=== PATIENT | male | born 1975 | race American Indian/Alaskan Native ===

== ENCOUNTER 2021-05-31 07:30 | Day surgery (SDC) | payer BC ==
[2021-05-31] MEDS ORDERED: ASPIRIN EC 325 MG TAB PO NR (08:00)
[2021-05-31] MEDS ORDERED: SODIUM CHLORIDE 0.9% 500 ML 500 ML IV SCH (08:00)
[2021-05-31 09:05] LABS: Basophils # (Auto) 0.1 K/mm3 (0.0-0.1); Basophils % (Auto) 1.1 % (0.0-1.8); Eosinophils # (Auto) 0.2 K/mm3 (0.0-0.4); Eosinophils % (Auto) 4.2 % (0.0-4.3); Hematocrit 39.1 % (35.5-45.6); Lymphocytes # (Auto) 1.8 K/mm3 (1.2-5.4); Lymphocytes % (Auto) 29.9 % (13.4-35.0); Mean Corpuscular HGB Conc 33 % (32-34); Mean Corpuscular Volume 87 fl (84-94); Monocytes # (Auto) 0.5 K/mm3 (0.0-0.8); Platelet Count 173 K/mm3 (140-440); Red Blood Count 4.49 M/mm3 (3.65-5.03); Red Cell Distribution Width 16.4 % (13.2-15.2)
[2021-05-31 09:14] LABS: INR 0.88 (0.87-1.13)
[2021-05-31 09:40] LABS: BUN/Creatinine Ratio 13; Blood Urea Nitrogen 14 mg/dL (9-20); Calcium 8.8 mg/dL (8.4-10.2); Hemolysis Index 5
[2021-05-31] MEDS ORDERED: HEPARIN/NS 5000 UNIT/500ML 1,000 ML IR ONE (10:07)
[2021-05-31] MEDS ORDERED: HEPARIN 10,000 UNITS/10 ML VIAL ONE (10:08)
[2021-05-31] MEDS: LIDOCAINE (2%) 20 MG/1 ML VIAL 20 ML MDV INFILTRATI ONE ×2 (10:48→10:52)
[2021-05-31] MEDS: MIDAZOLAM 2 MG/2 ML INJ ONE ×3 (10:51→11:01)
[2021-05-31] MEDS: fentaNYL 100 MCG/2 ML INJ ONE ×3 (10:51→11:01)
[2021-05-31] MEDS ORDERED: LIDOCAINE (2%) 20 MG/1 ML VIAL 20 ML MDV INFILTRATI ONE (10:58)
[2021-05-31] MEDS ORDERED: hydrALAZINE 20 MG/1 ML INJ ONE (11:26)
[2021-05-31] MEDS ORDERED: hydrALAZINE 20 MG/1 ML INJ IV ONE (12:21)
--- NOTE | 2021-05-31 13:09 | Cardiac Catherization Report ---
DATE OF SERVICE: 05/31/2021 INDICATIONS: The patient is a 45-year-old gentleman with history of essential hypertension and history of COVID infection in 04/2021, having shortness of breath and the patient does have a history of aortocoronary bypass surgery performed on 08/25/[address] Bijan Abraham with a LUNDY to the LAD, SVG to diagonal and SVG to PDA and SVG to mid obtuse marginal branch for angina. Presently underwent a PET nuclear imaging, which showed evidence of reduced myocardial blood flow in the territory of the RCA along with mild ischemia in the same area. Because of this, the patient was scheduled for cardiac catheterization for definitive diagnosis and treatment with occasional episodes of chest pain. The patient had an echocardiogram performed on 05/15/2021, which was found to show normal ejection fraction of 50-55% and septal wall appeared to be moderately hypokinetic. Borderline LVH noted. The patient is aware of the procedure, potential complications, and alternatives of therapy available. DESCRIPTION OF PROCEDURE: The patient was brought to the catheterization laboratory and his blood pressure was found to be significantly elevated 168/110 mmHg. Subsequently, the patient was evaluated for moderate sedation and was felt to be a candidate for moderate sedation and received IV Versed and fentanyl and continuously monitored with pulse oximetry and EKG monitoring and hemodynamic monitoring. Right groin area was prepared with chlorhexidine solution, sterile drapes were applied, local anesthesia was given in the right groin area. Right femoral artery puncture was made using 5-Burkinan micropuncture needle under fluoroscopy. A 6-Burkinan slender sheath was introduced. A 6-Burkinan multipurpose catheter was used to obtain the angiograms of the saphenous vein graft to the diagonal, saphenous vein graft to the mid obtuse marginal, saphenous vein graft to the RCA, and also left coronary angiograms were obtained using the same catheter. Subsequently, this catheter was then exchanged to mammary catheter and angiograms of the right coronary artery and angiograms of the left internal mammary artery graft were obtained with mammary catheter. Subsequently, this catheter was removed over the guidewire. Angiograms of the right femoral artery were obtained. The patient's right femoral artery puncture was in the appropriate position below the inferior epigastric artery. Manual pressure will be applied, but will control the blood pressure prior to pulling out the sheath. The patient tolerated the procedure well. No untoward complications noted. The patient's moderate sedation started at 10:51 a.m. and ended at 11:24 a.m. At the end of the procedure, the patient is communicating normally and breathing normally with no focal deficits. The patient was transferred to the outpatient area in stable condition. We will monitor the blood pressure, will remove the sheath and manual pressure will be applied. Following findings were noted. HEMODYNAMICS: Aortic pressure 168/110. Left ventricular pressure 168/34. No gradient across the aortic valve. Estimated ejection fraction 60%. Left ventriculogram done in J[facility]AV[facility] projection showed normal sized left ventricle with normal contractility. Estimated ejection fraction 60%. Elevated end diastolic pressure of 34 mmHg noted. Left coronary artery arises normally from left coronary cusp. Left main without significant disease. LAD is occluded in the proximal part. Left internal mammary graft to the mid LAD is widely patent. The graft itself and that distal LAD without significant disease. Circumflex artery is represented by a circumflex artery in the AV groove and posterolateral branch. Mid obtuse marginal branch is occluded. Saphenous vein graft to the mid obtuse marginal branch is patent and mid obtuse marginal branch itself without significant disease. Saphenous vein graft to the diagonal is patent and diagonal branch, which is small to medium sized, without significant disease. Right coronary artery dominant vessel is occluded in the proximal to mid part. Distal RCA is filling on injection of the left coronary system. Saphenous vein graft to the PDA is occluded with only stump being visualized. At this time, the patient has severe triple vessel disease with patent left internal mammary to the mid LAD, patent saphenous vein graft to the diagonal, and patent saphenous vein graft to the mid obtuse marginal branch. However, dominant RCA is occluded in the proximal to mid part with occluded vein graft to the PDA, with collaterals noted to the LV branch and PDA. Considering the above angiographic pictures, the patient will be continued on aggressive medical therapy and better control of his blood pressure. The patient tolerated the procedure well and no untoward complications. The patient was explained of the above findings. TID: [id number] RECEIPT: [id number] BEATRICE/PAKO HART
[2021-05-31] MEDS ORDERED: ONDANSETRON 4 MG/2 ML INJ ONE (13:10)
--- NOTE | 2021-05-31 13:41 | Electrocardiograph Report ---
[facility] Test Date: 2021-05-31 Test Time: 08:37:19 Pat Name: LULI MALDONADO Department: Room: Gender: M Projection Printer: DENISHA : [id number] Requested By: BIGG DURANT Order Number: [id number] Reading MD: Keyana Fisher Measurements Intervals [place] Rate: 71 P: 47 MA: 159 QRS: 12 QRSD: 107 T: -16 QT: 393 QTc: 427 Interpretive Statements Sinus rhythm Probable left atrial enlargement No previous ECG available for comparison Electronically Signed On 05-31-2021 13:41:33 EST by Keyana Fisher
--- NOTE | 2021-05-31 14:08 | Short Stay Summary ---
Short Stay Documentation Date of service: 05/31/21 - History H&P: obtained from office - Allergies and Medications Current Medications: Allergies No Known Allergies Allergy (Unverified 05/31/21 07:59) Home Medications Medication Instructions Recorded Confirmed Last Taken Type Aspirin EC [Halfprin EC] 81 mg PO DAILY 05/31/21 05/31/21 05/30/21 History 81 mg Atorvastatin [Lipitor] 80 mg PO DAILY 05/31/21 05/31/21 05/30/21 History 80 mg Gabapentin 1 cap PO BID 05/31/21 05/31/21 05/30/21 History 300 mg Indomethacin 50 mg PO BID 05/31/21 05/31/21 05/30/21 History 1 cap Lisinopril/Hydrochlorothiazide 20 - 25 mg PO DAILY 05/31/21 05/31/21 05/31/21 09:10 History [Zestoretic 10-12.5 mg Tablet] 1 tab Metformin HCl [Metformin HCl ER] 750 mg PO DAILY 05/31/21 05/31/21 05/30/21 History 750 mg Metoprolol [Lopressor TAB] 50 mg PO BID 05/31/21 05/31/21 05/30/21 History 50 mg allopurinoL [Zyloprim] 300 mg PO DAILY 05/31/21 05/31/21 05/29/21 History Active Medications Sodium Chloride (Nacl 0.9% 500 Ml) 500 mls @ 50 mls/hr IV DIRECT IVORY Stop: 05/31/21 17:59 Last Admin: 05/31/21 09:09 Dose: 50 mls/hr Documented by: - Physical exam Integumentary: other (dressing clean dry and intact. No bleeding or hematoma ) - Brief post op/procedure progress note Date of procedure: 05/31/21 Pre-op diagnosis: abnormal stress Post-op diagnosis: other (triple vessel disease) Anesthesia: local Estimated blood loss: minimal - Disposition Condition at discharge: Good Disposition: 01 HOME / SELF CARE / HOMELESS Short Stay Discharge Plan Activity: advance as tolerated Diet: low fat, low cholesterol, low salt Wound: keep clean and dry, per your surgeon's advice Follow up with: ROSE MULLEN [Other] - 7 Days BIGG DURANT MD [Staff Physician] - 7 Days (Patient has a follow-up appointment with Dr. Zimmerman on 06/23/2021 at 12 PM at our [place] location. Phone [phone]) Forms: [employer] PCI D/C Instructions
[2021-05-31] MEDS ORDERED: ONDANSETRON 4 MG/2 ML INJ IV ONE (14:20)
[2021-05-31 16:34] VITALS: BP 169/105
== END 2021-05-31 17:25 | disposition home or self-care (01) ==
LOC: CATHLABREC 07:30
PROVIDERS: ATTEND Internal Medicine
DX: R07.9 Chest pain, unspecified (principal); I25.810 Atherosclerosis of coronary artery bypass graft(s) without angina pectoris; I10 Essential (primary) hypertension; E78.5 Hyperlipidemia, unspecified; Z86.16 Personal history of COVID-19; Z79.899 Other long term (current) drug therapy; Z79.82 Long term (current) use of aspirin; Z98.890 Other specified postprocedural states
CPT/HCPCS: 36415; 80048; 85025; 85610; 85730; 93005; 93459; 96374; 99156; 99157; C1769; C1894; J0360; J1644; J2250; J2405; J3010; J7040; Q9967